=== PATIENT | male | born 1970 | race Caucasian/White ===

== ENCOUNTER → 2018-11-02 | Outpatient (CLI) | payer MEDICARE ==
[~2018-11-02] MED LIST: COPAXONE40 MG/1 ML SQ; CYMBALTA60 MG PO; LINZESS290 MCG PO; MS CONTIN30 MG PO
== END ==
LOC: M.RAD 12:11
DX: M79.89 Other specified soft tissue disorders (principal); M79.645 Pain in left finger(s)